=== PATIENT | female | born 1970 | race Caucasian/White ===

== ENCOUNTER 2018-10-12 15:22 | Outpatient (CLI) | payer OTHER ==
--- NOTE | 2018-10-12 16:26 | ULT ---
TRANSABDOMINAL AND TRANSVAGINAL PELVIC ULTRASOUND WITH HERNANDEZ SCALE, COLOR FLOW AND SPECTRAL DOPPLER IM AGIN10/12/18 HISTORY: Heavy and painful periods. Painful intercourse and pelvic pain. FINDINGS: The uterus is retroverted and diffusely heterogeneous and measures 7.8 x 5.8 x 5.2 cm. No endometrial fluid is seen. At least two identifiable fibroids are seen measuring 1.5 cm each. The endometrium me asures 6 mm in thickness. The right ovary is not visualized. The left ovary measures 2.4 x 1.1 x 3.2 cm. Flow is demonstrated t o the left ovary. No adnexal mass is noted. No free fluid is seen in the cul-de-sac. Multiple large N abothian cysts are noted. IMPRESSION: Uterine fibroids. POS: OFF
== END 2018-10-12 15:23 | disposition home or self-care (01) ==
LOC: BICULT 15:22
PROVIDERS: ATTEND Nurse Practitioner Family
DX: N94.6 Dysmenorrhea, unspecified (principal); N92.1 Excessive and frequent menstruation with irregular cycle; D25.9 Leiomyoma of uterus, unspecified
CPT/HCPCS: 76856